=== PATIENT | female | born 1995 | race Two or more races ===

== ENCOUNTER 2023-12-15 18:18 | Emergency (ER) | payer OTHER ==
[~2023-12-15] VITALS: Ht 175.3 cm; Wt 163.3 kg
[2023-12-15] MEDS ORDERED: KETOROLAC TROMETHAMINE 30 MG VIAL IM STA (19:34)
[2023-12-15] MEDS ORDERED: DEXAMETHASONE SODIUM PHOSPHATE 4 MG/ML VIAL IM STA (19:34)
== END 2023-12-15 20:29 | disposition home or self-care (01) ==
LOC: ER 18:19
DX: M54.89 Other dorsalgia (principal)

== ENCOUNTER 2023-12-20 13:05 | Emergency (ER) | payer OTHER ==
[~2023-12-20] VITALS: Ht 175.3 cm; Wt 163.3 kg
[2023-12-20] MEDS ORDERED: ORPHENADRINE CITRATE 30 MG/ML AMPUL IM ONE (14:15)
[2023-12-20] MEDS ORDERED: KETOROLAC TROMETHAMINE 60 MG VIAL IM ONE (14:15)
== END 2023-12-20 17:35 | disposition home or self-care (01) ==
LOC: ER 13:06
DX: M51.27 Other intervertebral disc displacement, lumbosacral region (principal)

== ENCOUNTER 2025-02-06 14:03 | Emergency (ER) | payer OTHER ==
[~2025-02-06] VITALS: Ht 175.3 cm; Wt 149.7 kg
[2025-02-06 15:56] LABS: BASO % 0.4 % (0.1-1.2); EOS # 0.19 (0.04-0.54); EOS % 2.0 % (0.7-7.0); LYMPH # 2.72 (1.18-3.74); LYMPH % 28.8 % (19.3-53.1); MEAN PLATELET VOLUME 10.00 fl (9.4-12.4); MONO # 0.63 (0.24-0.82); MONO % 6.7 % (4.7-12.5); NEUT # 5.82 (1.56-6.13); NEUT % 61.6 % (34.0-71.1); RED CELL DISTRIBUTION WIDTH 14.0 % (11.6-14.4)
[2025-02-06 16:35] LABS: URINE APPEARANCE Cloudy; URINE BILIRRUBIN Negative (NEGATIVE); URINE BLOOD Large; URINE COLOR Orange; URINE KETONE Trace (NEGATIVE); URINE LEUKOCYTE Trace; URINE NITRATE Negative; URINE PROTEIN 30 (NEGATIVE); URINE UROBILINOGEN 0.2 E.U./dl
[2025-02-06 16:41] LABS: URINE BACTERIA 560.4 uL (0.0-1933); URINE EPITHELIAL CELLS 17.0 uL (0.0-38.8); URINE WBC 41.2 uL (0.0-23.2)
[2025-02-06 16:55] LABS: URINE GLUCOSE >=1000 MG/DL (NEGATIVE)
[2025-02-06 16:56] LABS: URINE CAST 0.00 uL (0.0-1.40); URINE RBC > 10558.9 uL (0.0-20.8)
[2025-02-06] MEDS ORDERED: NAPROXEN500 MG PO (17:23)
[2025-02-06] MEDS ORDERED: SPRINTEC 28 DA1 EAC1 PO (17:23)
== END 2025-02-06 17:45 | disposition home or self-care (01) ==
LOC: ER 14:03
PROVIDERS: Emergency Medicine
DX: N83.201 Unspecified ovarian cyst, right side (principal); R10.2 Pelvic and perineal pain; N93.9 Abnormal uterine and vaginal bleeding, unspecified